=== PATIENT | female | born 1975 | race Two or more races ===

== ENCOUNTER 2018-01-26 13:00 | Emergency (ER) | payer SELFPAY ==
[~2018-01-26] VITALS: Ht 157.5 cm; Wt 73.5 kg
[~2018-01-26 13:00] MED LIST: FLUT50DI IH; LORA10TA3 PO; advil; ibuprofen; tylenol
[2018-01-26 13:36] LABS: BILIRUBIN,URINE NEGATIVE (NEG); CLARITY,URINE CLEAR; COLOR,URINE YELLOW; NITRITE,URINE NEGATIVE (NEG); PROTEIN,URINE NEGATIVE (NEG-TRACE); UROBILINOGEN,URINE 0.2 mg/dL (0.2 mg/dL)
[2018-01-26 13:46] LABS: BACTERIA,URINE MODERATE /HPF (0-FEW)
[2018-01-26 14:54] VITALS: BP 113/77
[2018-01-26 15:01] LABS: BASO % 0 % (0-3); EOS # 0.1 x10^3/uL (0.0-0.7); EOS % 1 % (0-3); HEMATOCRIT 38.9 % (36.0-47.0); HEMOGLOBIN 13.4 g/dL (12.0-15.5); LYMPH % 28 % (24-48); MEAN CORPUSCULAR HEMOGLOBIN 32 pg (25-35); MEAN CORPUSCULAR HGB CONC 34 g/dL (31-37); MEAN CORPUSCULAR VOLUME 93 fL (79-100); MONO # 0.5 x10^3/uL (0.0-1.1); MONO % 7 % (0-9); NEUT # 4.7 x10^3uL (1.8-7.7); NEUT % 64 % (31-73); PLATELET COUNT 223 x10^3/uL (140-400); RED BLOOD COUNT 4.18 x10^6/uL (3.50-5.40); RED CELL DISTRIBUTION WIDTH 14.2 % (11.5-14.5); WHITE BLOOD COUNT 7.4 x10^3/uL (4.0-11.0)
[2018-01-26 15:07] LABS: CREATININE 0.6 mg/dL (0.6-1.0); GFR 109.6; POTASSIUM 4.1 mmol/L (3.5-5.1)
[2018-01-26 15:13] LABS: ALBUMIN 3.6 g/dL (3.4-5.0); ALBUMIN/GLOBULIN RATIO 0.9 (1.0-1.7); TOTAL BILIRUBIN 0.4 mg/dL (0.2-1.0); TOTAL PROTEIN 7.5 g/dL (6.4-8.2)
--- NOTE | 2018-01-26 15:43 | RAD ---
OB <14 WKS W/TV History: Bleeding in Comparison: None. Findings: Multiple transabdominal sonographic images of pelvis are submitted. There is a single intrauterine gestational sac. Gestational sac morphology is within normal limits. There is identifiable yolk sac. Ovaries are not well visualized. Transvaginal ultrasound: Multiple transvaginal sonographic images of the pelvis are submitted. Uterus measured 12.2 x 6.4 x 6.2 cm. There is a single intrauterine gestational sac. Gestational sac morphology is within normal limits. Amniotic fluid volume is within normal limits. There is demonstrable cardiac activity 132 bpm. There is identifiable pole. Lester-rump length measurement of 0.74 cm corresponds 6 weeks 4 days. Adjusted ultrasound age is 6 weeks 4 days with estimated delivery date by ultrasound of 09/17/2018. LMP age is 8 weeks 2 days with estimated delivery date of 09/07/2018. There is identifiable yolk sac. Placenta and anatomy are not well visualized at this age of the . There is focus of hypoechogenicity near the gestational sac measuring about 0.1 x 3.7 x 1.2 cm. Left ovary measured 2.5 x 2.7 x 1.6 cm with normal low resistance vascularity. Right ovary measured 2.5 x 3 x 2.5 cm with normal low resistance vascularity. No significant free fluid is demonstrated. Impression: 1. There is a single viable intrauterine with adjusted ultrasound age of 6 weeks 4 days with estimated delivery date by ultrasound of 09/17/2018, demonstrable cardiac activity. There is subchorionic hemorrhage adjacent to gestational sac. Electronically signed by: Jordi Cox MD (01/26/2018 3:40 PM) [facility]
--- NOTE | 2018-01-26 16:43 | PHYS DOC ---
Past Medical History Past Medical History: No Pertinent History Past Surgical History: No Surgical History Alcohol Use: None Drug Use: None Adult General Chief Complaint Chief Complaint: ABDOMINAL PAIN IN HPI HPI Patient is a 42 year old female who presents with mild pelvic pain and an incident of vaginal bleeding. The patient states that when she went to the restroom approximately 3 days ago she had blood on the paper when she wiped. She denies any further vaginal bleeding. She is . She denies urgency frequency or burning with urination. Review of Systems Review of Systems Constitutional: Denies fever or chills [] Respiratory: Denies cough or shortness of breath [] Cardiovascular: No additional information not addressed in HPI [] GI: Denies abdominal pain, nausea, vomiting, bloody stools or diarrhea [] : See history of present illness Musculoskeletal: Denies back pain or joint pain [] Integument: Denies rash or skin lesions [] Neurologic: Denies headache, focal weakness or sensory changes [] Endocrine: Denies polyuria or polydipsia [] All other systems were reviewed and found to be within normal limits, except as documented in this note. Allergies Allergies Allergies Coded Allergies Type Severity Reaction Last Updated Verified No Known Drug Allergies 06/23/13 No Physical Exam Physical Exam Constitutional: Well developed, well nourished, no acute distress, non-toxic appearance. [] Cardiovascular:Heart rate regular rhythm, no murmur [] Lungs & Thorax: Bilateral breath sounds clear to auscultation [] Abdomen: Bowel sounds normal, soft, no tenderness, no masses, no pulsatile masses. [] Skin: Warm, dry, no erythema, no rash. [] Back: No tenderness, no CVA tenderness. [] Extremities: No tenderness, no cyanosis, no clubbing, ROM intact, no edema. [] Neurologic: Alert and oriented X 3, normal motor function, normal sensory function, no focal deficits noted. [] Psychologic: Affect normal, judgement normal, mood normal. [] Current Patient Data Vital Signs Vital Signs Date Time Temp Pulse Resp B/P (MAP) Pulse Ox O2 Delivery O2 Flow Rate FiO2 01/26/18 14:54 86 113/77 (89) 100 Room Air 01/26/18 13:15 98.8 18 98.8 Lab Values Laboratory Tests Test 01/26/18 13:15 01/26/18 13:29 01/26/18 14:50 Urine Collection Type Unknown Urine Color Yellow Urine Clarity Clear Urine pH 6.0 Urine Specific [place] 1.015 Urine Protein Negative mg/dL (NEG-TRACE) Urine Glucose (UA) Negative mg/dL (NEG) Urine Ketones (Stick) Negative mg/dL (NEG) Urine Blood Negative (NEG) Urine Nitrite Negative (NEG) Urine Bilirubin Negative (NEG) Urine Urobilinogen Dipstick 0.2 mg/dL (0.2 mg/dL) Urine Leukocyte Esterase Negative (NEG) Urine RBC 1-2 /HPF (0-2) Urine WBC 1-4 /HPF (0-4) Urine Bacteria Moderate /HPF (0-FEW) POC Urine HCG, Qualitative Hcg positive (Negative) White Blood Count 7.4 x10^3/uL (4.0-11.0) Red Blood Count 4.18 x10^6/uL (3.50-5.40) Hemoglobin 13.4 g/dL (12.0-15.5) Hematocrit 38.9 % (36.0-47.0) Mean Corpuscular Volume 93 fL (79-100) Mean Corpuscular Hemoglobin 32 pg (25-35) Mean Corpuscular Hemoglobin Concent 34 g/dL (31-37) Red Cell Distribution Width 14.2 % (11.5-14.5) Platelet Count 223 x10^3/uL (140-400) Neutrophils (%) (Auto) 64 % (31-73) Lymphocytes (%) (Auto) 28 % (24-48) Monocytes (%) (Auto) 7 % (0-9) Eosinophils (%) (Auto) 1 % (0-3) Basophils (%) (Auto) 0 % (0-3) Neutrophils # (Auto) 4.7 x10^3uL (1.8-7.7) Lymphocytes # (Auto) 2.0 x10^3/uL (1.0-4.8) Monocytes # (Auto) 0.5 x10^3/uL (0.0-1.1) Eosinophils # (Auto) 0.1 x10^3/uL (0.0-0.7) Basophils # (Auto) 0.0 x10^3/uL (0.0-0.2) Maternal Serum HCG Beta Subunit 57520 mIU/mL (0-5) H Sodium Level 138 mmol/L (136-145) Potassium Level 4.1 mmol/L (3.5-5.1) Chloride Level 103 mmol/L (98-107) Carbon Dioxide Level 26 mmol/L (21-32) Anion Gap 9 (6-14) Blood Urea Nitrogen 7 mg/dL (7-20) Creatinine 0.6 mg/dL (0.6-1.0) Estimated GFR (Cockcroft-Gault) 109.6 BUN/Creatinine Ratio 12 (6-20) Glucose Level 93 mg/dL (70-99) Calcium Level 9.0 mg/dL (8.5-10.1) Total Bilirubin 0.4 mg/dL (0.2-1.0) Aspartate Amino Transferase (AST) 13 U/L (15-37) L Alanine Aminotransferase (ALT) 18 U/L (14-59) Alkaline Phosphatase 75 U/L (46-116) Total Protein 7.5 g/dL (6.4-8.2) Albumin 3.6 g/dL (3.4-5.0) Albumin/Globulin Ratio 0.9 (1.0-1.7) L Laboratory Tests 01/26/18 14:50 Laboratory Tests 01/26/18 14:50 EKG EKG [] Radiology/Procedures Radiology/Procedures [] PATIENT: SUSY PENDLETON ACCOUNT: [id number] : 1975 LOCATION: ER AGE: 42 SEX: F EXAM STATUS: REG ER ORD. PHYSICIAN: JOSE DORAN APRN REASON: bleeding in PROCEDURE: OB <14 WKS W/TV OB <14 WKS W/TV History: Bleeding in Comparison: None. Findings: Multiple transabdominal sonographic images of pelvis are submitted. There is a single intrauterine gestational sac. Gestational sac morphology is within normal limits. There is identifiable yolk sac. Ovaries are not well visualized. Transvaginal ultrasound: Multiple transvaginal sonographic images of the pelvis are submitted. Uterus measured 12.2 x 6.4 x 6.2 cm. There is a single intrauterine gestational sac. Gestational sac morphology is within normal limits. Amniotic fluid volume is within normal limits. There is demonstrable cardiac activity 132 bpm. There is identifiable pole. Bo[place]ain-rump length measurement of 0.74 cm corresponds 6 weeks 4 days. Adjusted ultrasound age is 6 weeks 4 days with estimated delivery date by ultrasound of 09/17/2018. LMP age is 8 weeks 2 days with estimated delivery date of 09/07/2018. There is identifiable yolk sac. Placenta and anatomy are not well visualized at this age of the . There is focus of hypoechogenicity near the gestational sac measuring about 0.1 x 3.7 x 1.2 cm. Left ovary measured 2.5 x 2.7 x 1.6 cm with normal low resistance vascularity. Right ovary measured 2.5 x 3 x 2.5 cm with normal low resistance vascularity. No significant free fluid is demonstrated. Impression: 1. There is a single viable intrauterine with adjusted ultrasound age of 6 weeks 4 days with estimated delivery date by ultrasound of 09/17/2018, demonstrable cardiac activity. There is subchorionic hemorrhage adjacent to gestational sac. Electronically signed by: Brett Mcfarland MD (01/26/2018 3:40 PM) [facility] DICTATED and SIGNED BY: BRETT MCFARLAND MD DATE: 01/26/18 1536 Course & Med Decision Making Course & Med Decision Making Pertinent Labs and Imaging studies reviewed. (See chart for details) [] Dragon Disclaimer Dragon Disclaimer This electronic medical record was generated, in whole or in part, using a voice recognition dictation system. Departure Departure Impression: Primary Impression: Subchorionic hematoma Disposition: 01 HOME, SELF-CARE Condition: STABLE Referrals: UNKNOWN PCP NAME (PCP) DEXTER ROGERS Jr, MD Patient Instructions: Subchorionic Hematoma Additional Instructions: Follow-up with your hand icer for further evaluation. If worsening return to the emergency department. JOSE DORAN APRN Jan 26, 2018 16:43
== END 2018-01-26 17:07 | disposition home or self-care (01) ==
LOC: ER 13:00
DX: O20.8 Other hemorrhage in early pregnancy (principal); R10.2 Pelvic and perineal pain; Z3A.01 Less than 8 weeks gestation of pregnancy
CPT/HCPCS: 36415; 76801; 76817; 80053; 81001; 81025; 84702; 85025; 87086; 99285-25

== ENCOUNTER 2019-03-16 12:15 | Emergency (ER) | payer SELFPAY ==
[~2019-03-16] VITALS: Ht 162.6 cm; Wt 74.4 kg
--- NOTE | 2019-03-16 13:41 | PHYS DOC ---
Past Medical History Past Medical History: No Pertinent History Past Surgical History: No Surgical History Smoking: Cigarettes (The patient is a nonsmoker.) Alcohol Use: None Drug Use: None Adult General Chief Complaint Chief Complaint: BLOOD SUGAR PROBLEM HPI HPI Patient is a 43-year-old female presents to the emergency department for evaluation. Takes that for the past 2 weeks, she has had some dizziness, along with some intermittent throbbing headaches diffusely. She has not had any abrupt onset or "thunderclap" headaches. She denies any numbness or weakness. She has had some generalized dizziness, associated with some generalized blurred vision, but she has not had a sense of faintness or lightheadedness, nor sense of rotation. She denies any tinnitus. She has had numerous episodes of nausea without vomiting, sometimes associated with her dizziness, but has not had any abdominal pain. She did have some vomiting today, however. She denies any numbness or focal weakness. There are no alleviating or exacerbating factors to her symptoms otherwise. Her is a diabetic and she has been checking her blood sugar and has been as low as the 40s. She reports adequate oral intake, although somewhat decreased from her baseline. Review of Systems Review of Systems Constitutional: Denies fever or chills [] Eyes: Denies redness, or eye pain [] HENT: Denies nasal congestion or sore throat [] Respiratory: Denies cough or shortness of breath [] Cardiovascular:The patient denies any shortness of breath, chest pain, palpitations, or orthopnea [] GI: Denies abdominal pain, nausea, vomiting, bloody stools or diarrhea [] : Denies dysuria or hematuria [] Musculoskeletal: Denies back pain or joint pain [] Integument: Denies rash or skin lesions [] Neurologic: Denies focal weakness or sensory changes or speech difficulty, or c ognitive changes [] Endocrine: Denies polyuria or polydipsia [] All other systems were reviewed and found to be within normal limits, except as documented in this note. Current Medications Current Medications Current Medications Medications (Trade) Dose Ordered Sig/Kylee Start Time Stop Time Status Last Admin Dose Admin Meclizine HCl (Antivert) 25 mg 1X ONCE 03/16/19 13:45 03/16/19 13:46 DC 03/16/19 14:49 25 MG Allergies Allergies Allergies Coded Allergies Type Severity Reaction Last Updated Verified No Known Drug Allergies 06/23/13 No Physical Exam Physical Exam PHYSICAL EXAM: CONSTITUTIONAL: Well developed, well nourished HEAD: normocephalic, atraumatic EENT: PERRL, EOMI. Conjunctivae normal color, sclerae non-icteric; moist mucous membranes. There is intermittent and subtle lateral nystagmus, on rightward gaze only, which appears fatigable. NECK: Supple, non-tender; no meningismus. LUNGS: Lungs CTA, breathing even and unlabored. Normal air movement. HEART: Regular rate and rhythm, no murmur CHEST: No deformity; non-tender ABDOMEN: The abdomen is soft, and non-tender, no masses or bruits. EXTREM: Normal ROM; no deformity, no calf tenderness. Normal pulses palpable in all extremities. There is no pedal edema. SKIN: No rash; no diaphoresis NEURO: Alert; normal speech and cognition; CN's grossly intact; strength grossly intact without focal deficit. Visual alfaro are intact by confrontation. [id number]-[id number] and heel cho testing is normal. Sensation is grossly intact and symmetrical. BACK: No CVA TTP. Current Patient Data Vital Signs Vital Signs Date Time Temp Pulse Resp B/P (MAP) Pulse Ox O2 Delivery O2 Flow Rate FiO2 03/16/19 13:15 98.1 70 14 134/82 (99) 99 Room Air 98.1 Lab Values Laboratory Tests Test 03/16/19 13:15 03/16/19 13:32 03/16/19 13:38 Urine Collection Type Unknown Urine Color Yellow Urine Clarity Clear Urine pH 6.0 Urine Specific [place] <=1.005 Urine Protein Negative mg/dL (NEG-TRACE) Urine Glucose (UA) Negative mg/dL (NEG) Urine Ketones (Stick) Negative mg/dL (NEG) Urine Blood Negative (NEG) Urine Nitrite Negative (NEG) Urine Bilirubin Negative (NEG) Urine Urobilinogen Dipstick 0.2 mg/dL (0.2 mg/dL) Urine Leukocyte Esterase Negative (NEG) Urine RBC 0 /HPF (0-2) Urine WBC Rare /HPF (0-4) Urine Squamous Epithelial Cells Many /LPF Urine Bacteria Few /HPF (0-FEW) POC Urine HCG, Qualitative Hcg negative (Negative) White Blood Count 4.9 x10^3/uL (4.0-11.0) Red Blood Count 4.60 x10^6/uL (3.50-5.40) Hemoglobin 14.1 g/dL (12.0-15.5) Hematocrit 43.2 % (36.0-47.0) Mean Corpuscular Volume 94 fL (79-100) Mean Corpuscular Hemoglobin 31 pg (25-35) Mean Corpuscular Hemoglobin Concent 33 g/dL (31-37) Red Cell Distribution Width 14.2 % (11.5-14.5) Platelet Count 212 x10^3/uL (140-400) Neutrophils (%) (Auto) 54 % (31-73) Lymphocytes (%) (Auto) 36 % (24-48) Monocytes (%) (Auto) 8 % (0-9) Eosinophils (%) (Auto) 1 % (0-3) Basophils (%) (Auto) 0 % (0-3) Neutrophils # (Auto) 2.6 x10^3/uL (1.8-7.7) Lymphocytes # (Auto) 1.8 x10^3/uL (1.0-4.8) Monocytes # (Auto) 0.4 x10^3/uL (0.0-1.1) Eosinophils # (Auto) 0.1 x10^3/uL (0.0-0.7) Basophils # (Auto) 0.0 x10^3/uL (0.0-0.2) Sodium Level 139 mmol/L (136-145) Potassium Level 4.1 mmol/L (3.5-5.1) Chloride Level 103 mmol/L (98-107) Carbon Dioxide Level 29 mmol/L (21-32) Anion Gap 7 (6-14) Blood Urea Nitrogen 8 mg/dL (7-20) Creatinine 0.7 mg/dL (0.6-1.0) Estimated GFR (Cockcroft-Gault) 91.3 BUN/Creatinine Ratio 11 (6-20) Glucose Level 81 mg/dL (70-99) Calcium Level 8.9 mg/dL (8.5-10.1) Magnesium Level 2.0 mg/dL (1.8-2.4) Total Bilirubin 0.4 mg/dL (0.2-1.0) Aspartate Amino Transferase (AST) 13 U/L (15-37) L Alanine Aminotransferase (ALT) 11 U/L (14-59) L Alkaline Phosphatase 70 U/L (46-116) Troponin I Quantitative < 0.017 ng/mL (0.000-0.055) Total Protein 7.7 g/dL (6.4-8.2) Albumin 3.9 g/dL (3.4-5.0) Albumin/Globulin Ratio 1.0 (1.0-1.7) Thyroid Stimulating Hormone (TSH) 1.566 uIU/mL (0.358-3.74) Free Thyroxine 1.00 ng/dL (0.76-1.46) Laboratory Tests 03/16/19 13:38 Laboratory Tests 03/16/19 13:38 EKG EKG Normal sinus rhythm at a rate of 60 beats for minute, normal axis, normal intervals, nonspecific ST/T changes are present.[] Radiology/Procedures Radiology/Procedures PROCEDURE: CT HEAD WO CONTRAST CT HEAD WO CONTRAST Date: 03/16/2019 1:35 PM Clinical Indication: Dizziness, headache, vomiting for 2 weeks Comparison: 08/03/2006. Technique: 5 mm axial tomographic images were obtained of the head without contrast. These were viewed on brain and bone windows. One or more of the following dose reduction techniques were utilized: Automated exposure control (AEC), Adjustment of mA and/or kV according to patient size, Use of iterative reconstruction technique such as ASiR, CT scan done according to ALARA and image gently/image wisely Findings: The brain parenchyma is normal in attenuation. No intra- or extra-axial mass or fluid collection. No acute hemorrhage. The ventricles are normal in size, shape, and morphology. The rasmussen-white matter junction is normal. The subarachnoid cisterns are patent. The visualized paranasal sinuses are normal. The visualized portions of the orbits and globes are normal. The mastoid air cells are clear. The sole dyer topogram shows no lytic lesion or fracture. Impression: No acute intracranial process.[] Course & Med Decision Making Course & Med Decision Making Pertinent Labs and Imaging studies reviewed. (See chart for details) []3:20 PM: The patient's condition remains stable. She is feeling better at this time, her dizziness has resolved. I discussed test results, the need for close outpatient follow-up, and return precautions in detail. Dragon Disclaimer Dragon Disclaimer This electronic medical record was generated, in whole or in part, using a voice recognition dictation system. Departure Departure Impression: Primary Impression: Dizziness Disposition: 01 HOME, SELF-CARE Condition: STABLE Referrals: ELIANA VALENTINE MD Patient Instructions: Dizziness, Vertigo Scripts Meclizine Hcl (MECLIZINE HCL) 25 Mg Tablet 1 TAB PO PRN TID PRN for dizziness, #30 TAB Prov: JAN RUIZ MD 03/16/19 JAN RUIZ MD Mar 16, 2019 13:41
[2019-03-16] MEDS ORDERED: MECLIZINE HCL 12.5 MG TABLET. PO ONE (13:45)
[2019-03-16 13:48] LABS: BILIRUBIN,URINE NEGATIVE (NEG); CLARITY,URINE CLEAR; COLOR,URINE YELLOW; NITRITE,URINE NEGATIVE (NEG); PROTEIN,URINE NEGATIVE (NEG-TRACE); UROBILINOGEN,URINE 0.2 mg/dL (0.2 mg/dL)
[2019-03-16 13:49] LABS: BASO % 0 % (0-3); EOS # 0.1 x10^3/uL (0.0-0.7); EOS % 1 % (0-3); HEMATOCRIT 43.2 % (36.0-47.0); HEMOGLOBIN 14.1 g/dL (12.0-15.5); LYMPH # 1.8 x10^3/uL (1.0-4.8); LYMPH % 36 % (24-48); MEAN CORPUSCULAR HEMOGLOBIN 31 pg (25-35); MEAN CORPUSCULAR HGB CONC 33 g/dL (31-37); MEAN CORPUSCULAR VOLUME 94 fL (79-100); MONO # 0.4 x10^3/uL (0.0-1.1); MONO % 8 % (0-9); NEUT # 2.6 x10^3/uL (1.8-7.7); NEUT % 54 % (31-73); PLATELET COUNT 212 x10^3/uL (140-400); RED CELL DISTRIBUTION WIDTH 14.2 % (11.5-14.5); WHITE BLOOD COUNT 4.9 x10^3/uL (4.0-11.0)
[2019-03-16 13:56] LABS: BACTERIA,URINE FEW /HPF (0-FEW); RBC,URINE 0 /HPF (0-2); SQUAMOUS EPITHELIAL CELL,UR MANY /LPF; WBC,URINE RARE /HPF (0-4)
[2019-03-16 14:00] LABS: CALCIUM 8.9 mg/dL (8.5-10.1); CREATININE 0.7 mg/dL (0.6-1.0); GFR 91.3; POTASSIUM 4.1 mmol/L (3.5-5.1)
[2019-03-16 14:06] LABS: ALBUMIN 3.9 g/dL (3.4-5.0); TOTAL BILIRUBIN 0.4 mg/dL (0.2-1.0); TOTAL PROTEIN 7.7 g/dL (6.4-8.2)
[2019-03-16 14:12] LABS: THYROID STIM HORMONE (TSH) 1.566 uIU/mL (0.358-3.74)
--- NOTE | 2019-03-16 14:49 | RAD ---
CT HEAD WO CONTRAST Date: 03/16/2019 1:35 PM Clinical Indication: Dizziness, headache, vomiting for 2 weeks Comparison: 08/03/2006. Technique: 5 mm axial tomographic images were obtained of the head without contrast. These were viewed on brain and bone windows. One or more of the following dose reduction techniques were utilized: Automated exposure control (AEC), Adjustment of mA and/or kV according to patient size, Use of iterative reconstruction technique such as ASiR, CT scan done according to ALARA and image gently/image wisely Findings: The brain parenchyma is normal in attenuation. No intra- or extra-axial mass or fluid collection. No acute hemorrhage. The ventricles are normal in size, shape, and morphology. The rasmussen-white matter junction is normal. The subarachnoid cisterns are patent. The visualized paranasal sinuses are normal. The visualized portions of the orbits and globes are normal. The mastoid air cells are clear. The dog bather topogram shows no lytic lesion or fracture. Impression: No acute intracranial process. Electronically signed by: Jordi Reza MD (03/16/2019 2:46 PM) [facility]
[2019-03-16] MEDS ORDERED: MECL25TA3 PO (15:20)
[2019-03-16 15:30] VITALS: BP 118/65
--- NOTE | 2019-03-17 07:19 | EKG ---
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
== END 2019-03-16 15:46 | disposition home or self-care (01) ==
LOC: ER 12:15
DX: R42 Dizziness and giddiness (principal)
CPT/HCPCS: 36415; 70450; 80053; 81001; 81025; 83735; 84439; 84443; 84484; 85025; 93005; 99285; J8597